=== PATIENT | male | born 1945 | race Caucasian/White ===

== ENCOUNTER 2020-08-10 15:04 | Observation (INO) | payer MEDICARE ==
[2020-08-10] MEDS ORDERED: SODIUM CHLORIDE 0.9% 500 ML 500 ML IV ONE (15:22)
--- NOTE | 2020-08-10 15:25 | ED ---
General Adult HPI - General Chief complaint: Altered Mental Status Stated complaint: Confused/Dimentia Time Seen by Provider: 08/10/20 15:13 Source: patient Mode of arrival: ambulatory Limitations: no limitations - History of Present Illness Initial comments: 75-year-old male patient presents to the emergency department today for evaluation of increased confusion and anger outbursts. Granddaughters with the patient states that he does live at home alone though he does have a caregiver for 12 hours a day. States over the last week he has been more confused than usual. States he is also been getting angry and combative. States that he did recently complete antibiotic for urinary tract infection. Denies any recent falls or head injury. Patient states she does not know why he is here and does not really respond to questions. He denies any headache, blurred vision, double vision. Denies any abdominal pain, nausea or vomiting. Denies any diarrhea. - Related Data Home Medications Medication Instructions Recorded Confirmed Amiodarone HCl [Pacerone] 100 mg PO DAILY 08/10/20 08/10/20 Aspirin EC [Ecotrin Low Dose] 81 mg PO DAILY 08/10/20 08/10/20 Bisacodyl 5 mg PO Q48H 08/10/20 08/10/20 Cholecalciferol [Vitamin D3 (25 2,000 unit PO DAILY 08/10/20 08/10/20 Mcg = 1000 Iu)] Donepezil HCl [Aricept] 10 mg PO HS 08/10/20 08/10/20 Hydrochlorothiazide 12.5 mg PO DAILY 08/10/20 08/10/20 [hydroCHLOROthiazide] Levothyroxine Sodium [Synthroid] 100 mcg PO DAILY 08/10/20 08/10/20 Memantine [Namenda] 10 mg PO BID 08/10/20 08/10/20 [place]-3 Fatty Acids/Fish Oil [Fish 1 cap PO DAILY 08/10/20 08/10/20 Oil 1,000 mg Softgel] Oxybutynin Chloride [Oxybutynin 10 mg PO BID 08/10/20 08/10/20 Chloride ER] Pravastatin Sodium [Pravachol] 40 mg PO DAILY 08/10/20 08/10/20 Ubidecarenone [Co Q-10] 100 mg PO DAILY 08/10/20 08/10/20 Allergies Allergy/AdvReac Type Severity Reaction Status Date / Time No Known Allergies Allergy Verified 08/10/20 17:21 Review of Systems ROS Statement: Those systems with pertinent positive or pertinent negative responses have been documented in the HPI. ROS Other: All systems not noted in ROS Statement are negative. Past Medical History Past Medical History: Cancer, Heart Failure, Dementia, Hyperlipidemia, Hypertension, Renal Disease, Thyroid Disorder Additional Past Medical History / Comment(s): bladder CA History of Any Multi-Drug Resistant Organisms: None Reported Past Surgical History: Bladder Surgery, Pacemaker Additional Past Surgical History / Comment(s): nephrectomy Past Psychological History: No Psychological Hx Reported Smoking Status: Former smoker Past Alcohol Use History: None Reported Past Drug Use History: None Reported General Exam Limitations: no limitations General appearance: alert, in no apparent distress, other (This is a well- developed, well-nourished adult male patient in no acute distress. Vital signs upon presentation are temperature 97.8F, pulse 62, respirations 18, blood pressure 134/88, pulse ox 96% on room air.) Eye exam: Present: normal appearance, PERRL, EOMI. Absent: scleral icterus, conjunctival injection, periorbital swelling ENT exam: Present: normal exam, normal oropharynx, mucous membranes moist Respiratory exam: Present: normal lung sounds bilaterally. Absent: respiratory distress, wheezes, rales, rhonchi, stridor Cardiovascular Exam: Present: regular rate, normal rhythm, normal heart sounds. Absent: systolic murmur, diastolic murmur, rubs, gallop, clicks GI/Abdominal exam: Present: soft, normal bowel sounds. Absent: distended, tenderness, guarding, rebound, rigid Neurological exam: Present: alert, oriented X3, CN II-XII intact Psychiatric exam: Present: normal affect, normal mood Skin exam: Present: warm, dry, intact, normal color. Absent: rash Course Vital Signs 08/10/20 08/10/20 15:08 18:16 Temperature 97.8 F 97.8 F Pulse Rate 62 74 Respiratory 18 18 Rate Blood Pressure 134/88 134/79 O2 Sat by Pulse 96 98 Oximetry EKG Findings - EKG Comments: EKG Findings:: EKG obtained at 1538 shows electronic atrial pacemaker with a michael tricular rate of 64, NM interval 100, QRS duration 86, QT 434, QTC 447. Medical Decision Making - Medical Decision Making 75-year-old male patient is brought to the emergency department by granddaughter for increased confusion and agitation. States that patient has been getting violent at home especially at nighttime. States this is been increasing over the last week. Physical examination is unremarkable. He is neurologically intact alert and oriented 2. Labs reviewed and are unremarkable. CT brain is negative. He does not currently have a UTI. Granddaughter and patient were discussing possible placement in a retirement facility. We'll admit to the hospital for further evaluation, Dr. Buckley would like neurology consulted. - Lab Data Result diagrams: 08/10/20 16:07 08/10/20 16:07 Lab Results 08/10/20 08/10/20 08/10/20 Range/Units 16:07 16:07 16:07 WBC 6.3 (3.8-10.6) k/uL RBC 4.77 (4.30-5.90) m/uL Hgb 14.7 (13.0-17.5) gm/dL Hct 43.7 (39.0-53.0) % MCV 91.6 (80.0-100.0) fL MCH 30.8 (25.0-35.0) pg MCHC 33.6 (31.0-37.0) g/dL RDW 13.5 (11.5-15.5) % Plt Count 167 (150-450) k/uL MPV 7.0 Neutrophils % 73 % Lymphocytes % 15 % Monocytes % 6 % Eosinophils % 3 % Basophils % 2 % Neutrophils # 4.6 (1.3-7.7) k/uL Lymphocytes # 0.9 L (1.0-4.8) k/uL Monocytes # 0.4 (0-1.0) k/uL Eosinophils # 0.2 (0-0.7) k/uL Basophils # 0.1 (0-0.2) k/uL PT 10.1 (9.0-12.0) sec INR 1.0 (<1.2) APTT 22.9 (22.0-30.0) sec Sodium 142 (137-145) mmol/L Potassium 3.7 (3.5-5.1) mmol/L Chloride 108 H (98-107) mmol/L Carbon Dioxide 31 H (22-30) mmol/L Anion Gap 3 mmol/L BUN 21 H (9-20) mg/dL Creatinine 1.12 (0.66-1.25) mg/dL Est GFR (CKD-EPI)AfAm 74 (>60 ml/min/1.73 sqM) Est GFR (CKD-EPI)NonAf 64 (>60 ml/min/1.73 sqM) Glucose 118 H (74-99) mg/dL Calcium 9.2 (8.4-10.2) mg/dL Total Bilirubin 0.7 (0.2-1.3) mg/dL AST 40 (17-59) U/L ALT 35 (4-49) U/L Alkaline Phosphatase 98 (38-126) U/L Troponin I (0.000-0.034) ng/mL Total Protein 6.4 (6.3-8.2) g/dL Albumin 3.7 (3.5-5.0) g/dL Urine Color Urine Appearance (Clear) Urine pH (5.0-8.0) Ur Specific [place] (1.001-1.035) Urine Protein (Negative) Urine Glucose (UA) (Negative) Urine Ketones (Negative) Urine Blood (Negative) Urine Nitrite (Negative) Urine Bilirubin (Negative) Urine Urobilinogen (<2.0) mg/dL Ur Leukocyte Esterase (Negative) 08/10/20 08/10/20 Range/Units 16:07 16:55 WBC (3.8-10.6) k/uL RBC (4.30-5.90) m/uL Hgb (13.0-17.5) gm/dL Hct (39.0-53.0) % MCV (80.0-100.0) fL MCH (25.0-35.0) pg MCHC (31.0-37.0) g/dL RDW (11.5-15.5) % Plt Count (150-450) k/uL MPV Neutrophils % % Lymphocytes % % Monocytes % % Eosinophils % % Basophils % % Neutrophils # (1.3-7.7) k/uL Lymphocytes # (1.0-4.8) k/uL Monocytes # (0-1.0) k/uL Eosinophils # (0-0.7) k/uL Basophils # (0-0.2) k/uL PT (9.0-12.0) sec INR (<1.2) APTT (22.0-30.0) sec Sodium (137-145) mmol/L Potassium (3.5-5.1) mmol/L Chloride (98-107) mmol/L Carbon Dioxide (22-30) mmol/L Anion Gap mmol/L BUN (9-20) mg/dL Creatinine (0.66-1.25) mg/dL Est GFR (CKD-EPI)AfAm (>60 ml/min/1.73 sqM) Est GFR (CKD-EPI)NonAf (>60 ml/min/1.73 sqM) Glucose (74-99) mg/dL Calcium (8.4-10.2) mg/dL Total Bilirubin (0.2-1.3) mg/dL AST (17-59) U/L ALT (4-49) U/L Alkaline Phosphatase (38-126) U/L Troponin I <0.012 (0.000-0.034) ng/mL Total Protein (6.3-8.2) g/dL Albumin (3.5-5.0) g/dL Urine Color Yellow Urine Appearance Clear (Clear) Urine pH 6.0 (5.0-8.0) Ur Specific [place] 1.022 (1.001-1.035) Urine Protein Trace H (Negative) Urine Glucose (UA) Negative (Negative) Urine Ketones Negative (Negative) Urine Blood Negative (Negative) Urine Nitrite Negative (Negative) Urine Bilirubin Negative (Negative) Urine Urobilinogen <2.0 (<2.0) mg/dL Ur Leukocyte Esterase Negative (Negative) - Radiology Data Radiology results: report reviewed, image reviewed Two-view x-ray of the chest is obtained. Report was reviewed in its entirety. Impression by Dr. Soriano shows no active cardiopulmonary disease. Normal heart. CT brain without contrast was obtained. Report was reviewed in its entirety. Impression by Dr. Soriano shows cerebral atrophy. No acute intracranial abnormality. Disposition Clinical Impression: Altered mental status Disposition: ADMITTED IP TO THIS [facility] Condition: Serious Decision to Admit Reason: Admit from EC Decision Date: 08/10/20 Decision Time: 18:03
[2020-08-10 16:17] LABS: Basophils # (A) 0.1 k/uL (0-0.2); Basophils % (A) 2 %; Eosinophils # (A) 0.2 k/uL (0-0.7); Eosinophils % (A) 3 %; HCT 43.7 % (39.0-53.0); HGB 14.7 gm/dL (13.0-17.5); Lymphocytes # (A) 0.9 k/uL (1.0-4.8); Lymphocytes % (A) 15 %; MCH 30.8 pg (25.0-35.0); MCHC 33.6 g/dL (31.0-37.0); MCV 91.6 fL (80.0-100.0); Monocytes # (A) 0.4 k/uL (0-1.0); Monocytes % (A) 6 %; Neutrophils # (A) 4.6 k/uL (1.3-7.7); Neutrophils % (A) 73 %; Platelet Count 167 k/uL (150-450); RBC 4.77 m/uL (4.30-5.90); RDW 13.5 % (11.5-15.5); WBC 6.3 k/uL (3.8-10.6)
[2020-08-10 16:26] LABS: Albumin 3.7 g/dL (3.5-5.0); Calcium 9.2 mg/dL (8.4-10.2); Potassium 3.7 mmol/L (3.5-5.1); Total Bilirubin 0.7 mg/dL (0.2-1.3); Total Protein 6.4 g/dL (6.3-8.2)
[2020-08-10 16:32] LABS: Partial Thromboplastin Time 22.9 sec (22.0-30.0); Prothrombin Time 10.1 sec (9.0-12.0)
--- NOTE | 2020-08-10 16:33 | CT ---
EXAMINATION TYPE: CT brain wo con DATE OF EXAM: 08/10/2020 COMPARISON: None HISTORY: ams CT DLP: 1131.4 mGycm Automated exposure control for dose reduction was used. Images obtained of the brain without contrast. There is cerebral cortical atrophy. There is no mass effect nor midline shift. There is no sign of in tracranial hemorrhage. The calvarium is intact. IMPRESSION: Cerebral atrophy. No acute intracranial abnormality.
--- NOTE | 2020-08-10 16:50 | XR ---
EXAMINATION TYPE: XR chest 2V DATE OF EXAM: 08/10/2020 COMPARISON: NONE HISTORY: Confusion TECHNIQUE: 3 views FINDINGS: There is no heart failure nor confluent pneumonic infiltrate. Thoracic aorta is atheromatou s. There is left axillary pacemaker. Costophrenic angles are clear. There is no pleural effusion. Bon y thorax is intact. IMPRESSION: No active cardiopulmonary disease. Normal heart.
[2020-08-10 17:05] LABS: Appearance,Urine Clear (Clear); Bilirubin,Urine Negative (Negative); Blood,Urine Negative (Negative); Color,Urine Yellow; Glucose,Urine (UA) Negative (Negative); Ketones,Urine Negative (Negative); Leukocyte Esterase,Urine Negative (Negative); Nitrite,Urine Negative (Negative); Protein,Urine Trace (Negative); Specific Gravity,Urine 1.022 (1.001-1.035); Urobilinogen,Urine <2.0 mg/dL (<2.0)
[2020-08-10] MEDS ORDERED: LORazepam 2 MG/ML INJ IV PRN (18:02)
[2020-08-10] MEDS ORDERED: NALOXONE 0.4 MG/ML 1 ML VIAL IV PRN (18:02)
--- NOTE | 2020-08-10 23:16 | P.HPIM ---
History of Present Illness H&P Date: 08/10/20 Chief Complaint: Progressive and advanced dementia This is a 75-year-old male who was seen evaluated examined on fifth floor patient has been admitted from emergency department with severe dementia and Alzheimer's disease family is having a hard time in taking care of him looking for placement into ECF, patient intermittently having confusion anger outbursts and irritability, patient has been getting more progressively Confused, patient recently had a UTI status post therapy, denies any falls, neurology has been consulted for dementia evaluation, social work has been consulted likely to be placed in ECF Review of Systems ROS unobtainable: due to mental status Past Medical History Past Medical History: Cancer, Heart Failure, Dementia, Hyperlipidemia, Hypertension, Renal Disease, Thyroid Disorder Additional Past Medical History / Comment(s): bladder CA History of Any Multi-Drug Resistant Organisms: None Reported Past Surgical History: Bladder Surgery, Pacemaker Additional Past Surgical History / Comment(s): nephrectomy Type of Cardiac Device: Permanent Pacemaker Device Placement Date:: ? Past Psychological History: No Psychological Hx Reported Smoking Status: Former smoker Past Alcohol Use History: None Reported Additional Past Alcohol Use History / Comment(s): Patients niece stated that he quit smoking and drinking 20 years. Past Drug Use History: None Reported Medications and Allergies Home Medications Medication Instructions Recorded Confirmed Type Amiodarone HCl [Pacerone] 100 mg PO DAILY 08/10/20 08/10/20 History Aspirin EC [Ecotrin Low Dose] 81 mg PO DAILY 08/10/20 08/10/20 History Bisacodyl 5 mg PO Q48H 08/10/20 08/10/20 History Cholecalciferol [Vitamin D3 (25 2,000 unit PO DAILY 08/10/20 08/10/20 History Mcg = 1000 Iu)] Donepezil HCl [Aricept] 10 mg PO HS 08/10/20 08/10/20 History Hydrochlorothiazide 12.5 mg PO DAILY 08/10/20 08/10/20 History [hydroCHLOROthiazide] Levothyroxine Sodium [Synthroid] 100 mcg PO DAILY 08/10/20 08/10/20 History Memantine [Namenda] 10 mg PO BID 08/10/20 08/10/20 History [place]-3 Fatty Acids/Fish Oil [Fish 1 cap PO DAILY 08/10/20 08/10/20 History Oil 1,000 mg Softgel] Oxybutynin Chloride [Oxybutynin 10 mg PO BID 08/10/20 08/10/20 History Chloride ER] Pravastatin Sodium [Pravachol] 40 mg PO DAILY 08/10/20 08/10/20 History Ubidecarenone [Co Q-10] 100 mg PO DAILY 08/10/20 08/10/20 History Allergies Allergy/AdvReac Type Severity Reaction Status Date / Time No Known Allergies Allergy Verified 08/10/20 17:21 Physical Exam Vitals: Vital Signs Temp Pulse Pulse Resp BP BP Pulse Ox 08/10/20 20:30 97.6 F 63 15 135/85 08/10/20 19:17 98.3 F 61 18 139/88 98 08/10/20 18:16 97.8 F 74 18 134/79 98 08/10/20 15:08 97.8 F 62 18 134/88 96 Intake and Output 08/10/20 08/10/20 08/11/20 14:59 22:59 06:59 Other: Weight 99.79 kg - Constitutional General appearance: average body habitus, disheveled - EENT Eyes: PERRLA Ears: bilateral: normal - Neck Carotids: bilateral: upstroke normal Thyroid: bilateral: normal size - Respiratory Respiratory: bilateral: CTA - Cardiovascular Rhythm: regular Heart sounds: normal: S1, S2 - Gastrointestinal General gastrointestinal: normal bowel sounds, soft - Integumentary Integumentary: normal turgor - Neurologic Neurologic: CNII-XII intact - Musculoskeletal Musculoskeletal: gait normal, strength equal bilaterally Results CBC & Chem 7: 08/10/20 16:07 08/10/20 16:07 Labs: Abnormal Lab Results - Last 24 Hours (Table) 08/10/20 08/10/20 08/10/20 Range/Units 16:07 16:07 16:55 Lymphocytes # 0.9 L (1.0-4.8) k/uL Chloride 108 H (98-107) mmol/L Carbon Dioxide 31 H (22-30) mmol/L BUN 21 H (9-20) mg/dL Glucose 118 H (74-99) mg/dL Urine Protein Trace H (Negative) Comments: Chest x-ray and computed tomography scan of the head no acute changes identified Thrombosis Risk Factor Assmnt - Choose All That Apply Each Factor Represents 1 point: Obesity (BMI >25) Each Risk Factor Represents 3 Points: Age 75 years or older Thrombosis Risk Factor Assessment Total Risk Factor Score: 4 Thrombosis Risk Factor Assessment Level: Moderate Risk Assessment and Plan Assessment: Advanced agitated dementia Hypertension hypertensive cardiovascular disease Bladder cancer History of nephrectomy and bladder cancer resection Hypothyroidism Plan: Consult neurology Resume home medications Gentle rehydration Other recommendations pending plan of care as per clinical response of the patient, once workup and evaluation complete likely to be placed in ECF Time with Patient: Greater than 30
[2020-08-10] MEDS: DONEPEZIL 10 MG TAB PO SCH (23:34)
[2020-08-10] MEDS: MEMANTINE 10 MG TAB PO SCH (23:34)
[2020-08-11] MEDS ORDERED: HALOPERIDOL LACTATE 5 MG/ML 1 ML VIAL IM PRN (00:12)
[2020-08-11] MEDS ORDERED: haloperidoL 5 MG TAB PO SCH (00:15)
--- NOTE | 2020-08-11 08:39 | P.CNNES ---
History of Present Illness Consult date: 08/11/20 Requesting physician: Melo Buckley Reason for Consult: altered mental status History of Present Illness: This is a 75-year-old gentleman with medical history of dementia, hypertension, hyperlipidemia, heart failure, hypothyroidism, bladder cancer that presented to the emergency department on 08/10/2020 for altered mental status. The history was obtained from medical records since the patient is unable to obtain the history. On presentation to the ED the granddaughters presented with the patient that state that the patient has been having increased confusion and anger outburst. The patient does live home alone but he has a caregiver for 12 hours a day. According to the documentation the patient has been more confused than usual over the past 1 week. He's been more angry and combative. He did recently complete antibiotic for urinary tract infection. It is noted the patient did not have any recent falls or head injury documented. And he reported to the emergency department that he had no headache, blurry vision or double vision as well as he denied any abdominal pain nausea or vomiting as well as diarrhea. Upon seeing the patient the patient was sleepy and not per the patient nurse patient was very agitated overnight as a result he received Ativan 1 mg at that 2201 on 08/10/2020. With the patient nurse in the morning Patient doesn't seem to be agitated. There is no seizure-like activity. There are no family members at bedside and the unsure of the patient baseline at home. It seems that the patient is on home Aricept 10 mg as well as memantine 10 mg 1 tablet twice a day for dementia. He is also on aspirin 81 mg as well as on the pravastatin 40 mg daily. Patient is also on amiodarone 100 mg daily. Workup in the hospital consisted of: Initial vital signs: Blood pressure of 134/88, heart rate of 62, respiratory of 18, temperature of 97.8 Fahrenheit oral, pulse ox of 96% room air. Since she's been in the hospital he's been afebrile. Initial white blood cell was 6.3 which is normal. And the serum glucose is [address] of the head is reported as cerebral atrophy. No acute intracranial abnormality. 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 Review of Systems Review of system is limited but per positive and negative as per HPI. Past Medical History Past Medical History: Cancer, Heart Failure, Dementia, Hyperlipidemia, Hypertension, Renal Disease, Thyroid Disorder Additional Past Medical History / Comment(s): bladder CA History of Any Multi-Drug Resistant Organisms: None Reported Past Surgical History: Bladder Surgery, Pacemaker Additional Past Surgical History / Comment(s): nephrectomy Type of Cardiac Device: Permanent Pacemaker Device Placement Date:: ? Past Psychological History: No Psychological Hx Reported Smoking Status: Former smoker Past Alcohol Use History: None Reported Additional Past Alcohol Use History / Comment(s): Patients niece stated that he quit smoking and drinking 20 years. Past Drug Use History: None Reported Medications and Allergies Home Medications Medication Instructions Recorded Confirmed Type Amiodarone HCl [Pacerone] 100 mg PO DAILY 08/10/20 08/10/20 History Aspirin EC [Ecotrin Low Dose] 81 mg PO DAILY 08/10/20 08/10/20 History Bisacodyl 5 mg PO Q48H 08/10/20 08/10/20 History Cholecalciferol [Vitamin D3 (25 2,000 unit PO DAILY 08/10/20 08/10/20 History Mcg = 1000 Iu)] Donepezil HCl [Aricept] 10 mg PO HS 08/10/20 08/10/20 History Hydrochlorothiazide 12.5 mg PO DAILY 08/10/20 08/10/20 History [hydroCHLOROthiazide] Levothyroxine Sodium [Synthroid] 100 mcg PO DAILY 08/10/20 08/10/20 History Memantine [Namenda] 10 mg PO BID 08/10/20 08/10/20 History [place]-3 Fatty Acids/Fish Oil [Fish 1 cap PO DAILY 08/10/20 08/10/20 History Oil 1,000 mg Softgel] Oxybutynin Chloride [Oxybutynin 10 mg PO BID 08/10/20 08/10/20 History Chloride ER] Pravastatin Sodium [Pravachol] 40 mg PO DAILY 08/10/20 08/10/20 History Ubidecarenone [Co Q-10] 100 mg PO DAILY 08/10/20 08/10/20 History Allergies Allergy/AdvReac Type Severity Reaction Status Date / Time No Known Allergies Allergy Verified 08/10/20 17:21 Physical Examination - Vital Signs Vital Signs: Vital Signs Temp Pulse Pulse Resp BP BP Pulse Ox 08/11/20 03:00 16 08/11/20 00:40 98.4 F 67 14 166/94 99 08/10/20 20:30 97.6 F 63 15 135/85 08/10/20 19:17 98.3 F 61 18 139/88 98 08/10/20 18:16 97.8 F 74 18 134/79 98 08/10/20 15:08 97.8 F 62 18 134/88 96 Intake and Output 08/10/20 08/11/20 08/11/20 22:59 06:59 14:59 Other: Voiding Method Incontinent Weight 99.79 kg GENERAL: The patient is lying in bed and is not in acute distress. CHEST: The heart rate is regular rate rhythm. No murmurs to auscultation. LUNG: Clear to auscultation bilaterally no wheezing noted throughout. Not labored breathing. ABDOMEN/GI: Bowel sounds present in all 4 quadrants. No tenderness to palpation throughout. NEUROLOGICAL: Higher mental function: The patient is drowsy but awakeble to voice. Oriented to self. Stated he is lying in bed but unable to tell where. Does not respond regarding year or month. Patient is following simple commands. No aphasia. Cranial nerves: The pupils are round, equal (4mm) and reactive to light. Visual luz are full to threat throughout. Extraocular movement is intact no nystagmus is noted. 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 She does not have facial weakness bilaterally. The facial strength is normal throughout. No dysarthria is noted. Unable to test the rest of cranial nerves because the patient cooperation. Motor: Gait is deferred because of patient cooperation. The strength has at least 4/5 all extremities and unable to test individual muscle because of the patient cooperation. Normal tone and bulk. Cerebellum: Unable to assess because the patient cooperation. Sensation: Unable to assess because of patient cooperation Reflexes (right/left): 2+ throughout except ankles 1+ bilaterally. Plantars are downgoing bilaterally. Results AST of 40 and ALT of 35. Coagulation study: PT of 10.1, INR 1.0, PTT of 22.9. Urinalysis is negative for urinary tract infection. - Laboratory Findings CBC and BMP: 08/10/20 16:07 08/10/20 16:07 Abnormal Lab Findings: Abnormal Labs 08/10/20 08/10/20 08/10/20 16:07 16:07 16:55 Lymphocytes # 0.9 L Chloride 108 H Carbon Dioxide 31 H BUN 21 H Glucose 118 H Urine Protein Trace H Assessment and Plan Assessment: This is a 75-year-old gentleman that presents the hospital on 08/10/2020 for the confusion and agitation and per family members he's been more confused and agita jani the for the past 1 week. Altered mental status possibly is delerirum from recent UTI (completed course). Rule out any other underlying infection.----mentation improving. History of dementia Recent history of urinary tract infection that completed antibiotic course Hypertension Hyperlipidemia Heart failure Hypothyroidism History of bladder cancer Plan: For altered mental status I ordered a TSH, vitamin B12, folate, ammonia level. Also ordered a routine EEG. I'll not start the patient on any antiepileptic drug unless there is as seizure or epileptiform discharges on the EEG. Recommend further infection workup and we'll defer the workup to the primary team. Regarding the patient enlarged ventricle that seen on the CT of the head over the lateral third and fourth ventricle that was suspicious for normal pressure hydrocephalus and I'll defer the workup as an outpatient if the family decides to work him up to an outpatient neurology clinic. Regarding the patient history of dementia the patient is on home dose Aricept 10 mg daily as well as memantine 10 mg 1 tablet twice a day and is continued during this visit. Unsure of the patient the mentation baseline and we'll attempt to contact the family later today and. Upon discharge the patient needs to follow-up with a neurologist within 1-2 weeks as an outpatient. The plan was discussed with the patient nurse Thank you for the consultation. Kannan Love M.D. Neuro-hospitalist Time with Patient: Greater than 30
[2020-08-11] MEDS ORDERED: NON FORMULARY DRUG (Omega-3 Fatty Acids/Fish Oil [Fish Oil 1,000 Mg Softgel] 1 EACH Capsul PO SCH (09:00)
[2020-08-11] MEDS ORDERED: NON FORMULARY DRUG (Ubidecarenone [Co Q-10] 100 MG Capsule) PO SCH (09:00)
[2020-08-11] MEDS: PRAVASTATIN SODIUM 40 MG TAB PO SCH (10:15)
[2020-08-11] MEDS: hydroCHLOROthiazide 12.5 MG CAP PO SCH (10:15)
[2020-08-11] MEDS: MEMANTINE 10 MG TAB PO SCH ×2 (10:15→20:42)
[2020-08-11] MEDS: ASPIRIN 81 MG PO SCH (10:15)
[2020-08-11] MEDS: CHOLECALCIFEROL 1,000 UNIT TAB PO SCH (10:15)
[2020-08-11] MEDS: bisacodyL 5 MG TABLET.DR PO SCH (10:15)
[2020-08-11] MEDS: AMIODARONE 100 MG TAB PO SCH (10:16)
[2020-08-11] MEDS: OXYBUTYNIN 10 MG TAB.ER.24 PO SCH ×2 (10:16→20:42)
--- NOTE | 2020-08-11 14:04 | P.PN ---
Subjective Progress Note Date: 08/11/20 Principal diagnosis: Advanced agitated dementia Hypertension hypertensive cardiovascular disease Bladder cancer History of nephrectomy and bladder cancer resection Hypothyroidism 08/11/2020, patient is more calm and comfortable now makes eye contact noticed is present, sitter has been discontinued, This is a 75-year-old male who was seen evaluated examined on fifth floor patient has been admitted from emergency department with severe dementia and Alzheimer's disease family is having a hard time in taking care of him looking for placement into ECF, patient intermittently having confusion anger outbursts and irritability, patient has been getting more progressively Confused, patient recently had a UTI status post therapy, denies any falls, neurology has been consulted for dementia evaluation, social work has been consulted likely to be placed in ECF Objective - Vital Signs Vital signs: Vital Signs Temp 98 F 08/11/20 08:11 Pulse 60 08/11/20 08:11 Resp 16 08/11/20 08:11 BP 133/78 08/11/20 08:11 Pulse Ox 97 08/11/20 08:11 Intake & Output 08/10/20 08/11/20 08/11/20 18:59 06:59 18:59 Weight 99.79 kg 99.79 kg Other: Voiding Method Incontinent Diaper - Exam - Constitutional General appearance: average body habitus, disheveled - EENT Eyes: PERRLA Ears: bilateral: normal - Neck Carotids: bilateral: upstroke normal Thyroid: bilateral: normal size - Respiratory Respiratory: bilateral: CTA - Cardiovascular Rhythm: regular Heart sounds: normal: S1, S2 - Gastrointestinal General gastrointestinal: normal bowel sounds, soft - Integumentary Integumentary: normal turgor - Neurologic Neurologic: CNII-XII intact - Musculoskeletal Musculoskeletal: gait normal, strength equal bilaterally - Labs CBC & Chem 7: 08/10/20 16:07 08/10/20 16:07 Labs: Abnormal Lab Results - Last 24 Hours (Table) 08/10/20 08/10/20 08/10/20 Range/Units 16:07 16:07 16:55 Lymphocytes # 0.9 L (1.0-4.8) k/uL Chloride 108 H (98-107) mmol/L Carbon Dioxide 31 H (22-30) mmol/L BUN 21 H (9-20) mg/dL Glucose 118 H (74-99) mg/dL Urine Protein Trace H (Negative) Assessment and Plan Assessment: Advanced agitated dementia Hypertension hypertensive cardiovascular disease Bladder cancer History of nephrectomy and bladder cancer resection Hypothyroidism Plan: Consult neurology recommendation reviewed and appreciated Resume home medications Gentle rehydration Other recommendations pending plan of care as per clinical response of the patient, once workup and evaluation complete likely to be placed in ECF Time with Patient: Greater than 30
--- NOTE | 2020-08-11 17:49 | EEG ---
ELECTROENCEPHALOGRAM REPORT DATE OF SERVICE: 08/11/2020 CLINICAL HISTORY: This is a 75-year-old gentleman who presented to the emergency department on 08/10/2020 for confusion and agitation. The video EEG is obtained to evaluate for seizure and epileptiform activity. RELEVANT MEDICATION: The patient is not on any antiepileptic drugs. EEG TYPE: A routine 21-channel EEG is performed with video using the 10/20 electrode placement system. DESCRIPTION: Wakefulness, drowsiness and stage II sleep are obtained. During wakefulness there is no posterior-dominant rhythm. During awake state, background consists of low voltage, nonrhythmic 5-6 hertz theta activity over bilateral hemispheres intermixed with delta activity. During drowsiness there is slowing and attenuation of the background activity. During stage II sleep there are sleep spindles and K complexes. INTERICTAL AND ICTAL: None. ACTIVATION PROCEDURE: Photic stimulation did not evoke a posterior-driving response. Hyperventilation is not performed. CLINICAL INTERPRETATION: This is an abnormal routine EEG. The background slowing is suggestive of moderate encephalopathy of unspecified etiology. There are no focal slowing, epileptiform discharges or seizures during the study. Clinical correlation is recommended. MMODL / IJN: [id number] / MTDD
[2020-08-11] MEDS: DONEPEZIL 10 MG TAB PO SCH (20:42)
[2020-08-12] MEDS: ASPIRIN 81 MG PO SCH (07:53)
[2020-08-12] MEDS: PRAVASTATIN SODIUM 40 MG TAB PO SCH (07:53)
[2020-08-12] MEDS: hydroCHLOROthiazide 12.5 MG CAP PO SCH (07:54)
[2020-08-12] MEDS: MEMANTINE 10 MG TAB PO SCH ×2 (07:54→22:14)
[2020-08-12] MEDS: CHOLECALCIFEROL 1,000 UNIT TAB PO SCH (07:54)
[2020-08-12] MEDS: AMIODARONE 100 MG TAB PO SCH (07:54)
[2020-08-12] MEDS: OXYBUTYNIN 10 MG TAB.ER.24 PO SCH ×2 (07:55→22:14)
--- NOTE | 2020-08-12 13:16 | P.PN ---
Subjective Progress Note Date: 08/12/20 Principal diagnosis: Advanced agitated dementia Hypertension hypertensive cardiovascular disease Bladder cancer History of nephrectomy and bladder cancer resection Hypothyroidism 08/12/2020, patient seen eval examined during the rounds labs reviewed medications reviewed overall patient is more calm and comfortable now, neurology has been evaluated the patient, psych consult dictation is pending as per family request, 08/11/2020, patient is more calm and comfortable now makes eye contact noticed is present, sitter has been discontinued, This is a 75-year-old male who was seen evaluated examined on fifth floor patient has been admitted from emergency department with severe dementia and Alzheimer's disease family is having a hard time in taking care of him looking for placement into ECF, patient intermittently having confusion anger outbursts and irritability, patient has been getting more progressively Confused, patient recently had a UTI status post therapy, denies any falls, neurology has been consulted for dementia evaluation, social work has been consulted likely to be placed in ECF Objective - Vital Signs Vital signs: Vital Signs Temp 97.9 F 08/12/20 07:00 Pulse 61 08/12/20 07:00 Resp 20 08/12/20 07:00 BP 115/72 08/12/20 07:00 Pulse Ox 97 08/12/20 07:00 Intake & Output 08/11/20 08/12/20 08/12/20 18:59 06:59 18:59 Intake Total 320 320 Balance 320 320 Intake: Oral 320 320 Other: Voiding Method Diaper Toilet Toilet Diaper Diaper Incontinent Incontinent # Voids 3 1 - Exam - Constitutional General appearance: average body habitus, disheveled - EENT Eyes: PERRLA Ears: bilateral: normal - Neck Carotids: bilateral: upstroke normal Thyroid: bilateral: normal size - Respiratory Respiratory: bilateral: CTA - Cardiovascular Rhythm: regular Heart sounds: normal: S1, S2 - Gastrointestinal General gastrointestinal: normal bowel sounds, soft - Integumentary Integumentary: normal turgor - Neurologic Neurologic: CNII-XII intact - Musculoskeletal Musculoskeletal: gait normal, strength equal bilaterally - Labs CBC & Chem 7: 08/10/20 16:07 08/10/20 16:07 Assessment and Plan Assessment: Advanced agitated dementia Hypertension hypertensive cardiovascular disease Bladder cancer History of nephrectomy and bladder cancer resection Hypothyroidism Plan: Pending psychiatric consultation Consult neurology recommendation reviewed and appreciated Continue home medications Gentle oral rehydration Other recommendations pending plan of care as per clinical response of the patient, once workup and evaluation complete likely to be placed in ECF Time with Patient: Greater than 30
[2020-08-12] MEDS ORDERED: HALOPERIDOL LACTATE 5 MG/ML 1 ML VIAL IM PRN (13:59)
[2020-08-12] MEDS ORDERED: QUEtiapine 25 MG TAB PO PRN (14:00)
--- NOTE | 2020-08-12 14:18 | P.CN ---
Psychiatric Consult - . Consult date: 08/12/20 Consult:: 08/12/20 14:03 IDENTIFYING DATA: This patient is a 75 yo male who has history of dementia and is currently living alone in a trailer and has 24-hour caregivers and is . REASON FOR REFERRAL: Psychiatry was consulted for "combative towards caregiver". HISTORY OF PRESENT ILLNESS: The patient presented to the hospital for the chief complaint of increase in his confusion and anger outbursts. This has been reported to be especially prevalent at nighttime. According to granddaughter and ER note this is been going on for over a week now and patient has been treated previously for a UTI with antibiotics. Patient had another UA completed upon admission which was negative for infection. Patient had a CT of the brain which did not show any acute changes. Nursing care patient states that he has been doing better now and was earlier agitated however not very aggressive. She states that he slept well last night. Nurse also claims that he has been ambulating well. Patient was seen at the bedside and was calm and attempting to be appropriate with principal technical writer. He was a poor historian and perseverated on the fact that he had caregivers at home which came infrequently to take care of him. He had poor insight and knowledge of why he was in the hospital. He did know his complete name however did not know what city he was in and had to lock on the board to know the date. He only knows who the current president is but does not know the previous president. He had difficulties with his memory during conversation. He denied any problems with the caregivers at home and denied any anger issues or confusion. He had fair attention span. He claims that his mood was "okay" and denied any depression or anxiety. He did not endorse any paranoia or delusions. At this time patient denies any suicidal or homical ideations, intent or plan. Patient denies any auditory, visual hallucinations. Patients admits to using no recreational drugs or cigarettes. Claire Camacho was called by principal technical writer at [phone] who states that he was more confused recently and has been aggressive towards others. She states that he ran outside naked to neighbors and was confused and she took him to [facility] who discharged him. Granddaughter had several questions about his care and was asking about long-term placement options. PAST PSYCHIATRIC HISTORY: Patient has a a history of dementia. Patient denies being on any psychiatric medications. Patient denies any previous psychiatric hospitalizations. Patient denies any psychiatric outpatient follow-up. Patient denies any history of suicide attempts in the past. PAST MEDICAL HISTORY: Dementia, latter cancer, heart failure, hypertension, thyroid disorder. ALLERGIES: as per EMR. CHEMICAL DEPENDENCY HISTORY: as per HPI. FAMILY PSYCHIATRIC/SUBSTANCE USE HISTORY: denies SOCIAL HISTORY: Patient was born and raised [place] [facility] [place] [facility] He states that he served in the [employer] however does not know the dates. 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 He states that he is currently twice. He denies ever going to fpc or half-way in the past. He currently lives in a trailer alone and has 24-hour caregivers. MENTAL STATUS EXAM: General Appearance: Patient appears to be stated age is alert, pleasant, has fair attention span. Attempts to be cooperative. Patient appears to have fair hygiene and grooming wearing hospital gown with fair eye contact. Behavior: Patient is calmly lying in bed without any agitated behavior. Speech: Patient's speech is fluent and nonpressured. Mood/Affect: Patient reports their mood is "ok", affect is congruent and constricted Suicidality/Homicidality: Patient denies having any suicidal or homicidal ideation intent or plan. Perceptions: Patient denies any visual hallucinations and denies any auditory hallucinations Though content/process: Felicity, poor historian. Rambles at times. Logical. Memory and concentration: AOX1-2, does not know his current location and needed to check the board for the current date, fair attention span, poor memory recall 0 out of 3 after 5 minutes. Cannot spell "WORLD" backwards Judgment and insight: Limited IMPRESSIONS: Delirium, likely secondary to infection uti which has been resolving History of dementia PLAN: -At this time patient DOES NOT meet criteria for inpatient psychiatric admission. -Delirium precautions recommended with patient including - avoiding use of narcotics and [employer]IAN sedatives, limit anticholinergic medications when possible, frequent re-orientation, minimize use of restraints, open window shades during the day and close them at night -Would recommend the following medication changes/additions: Added melatonin 2 mg daily at bedtime for insomnia. Added Seroquel 25 mg daily at bedtime when necessary for agitation/insomnia/aggression. Haldol 1 mg every 8 hours when necessary for severe agitation if patient is not able to tolerate by mouth. -Communicated plan to patient's nurse and adoption social worker. -aniline press worker to reach out to patient's granddaughter to give resources and assist with long-term placement options. -Will continue to follow along -Please contact with any questions.
--- NOTE | 2020-08-12 16:59 | P.PN ---
Subjective Progress Note Date: 08/12/20 The patient was doing much better today compared to yesterday. He feels much better today compared to yesterday. He denies of any focal weakness, numbness, visual disturbance, difficulty getting his words out. Objective - Vital Signs Vital signs: Vital Signs Temp 97.6 F 08/12/20 14:00 Pulse 92 08/12/20 14:00 Resp 20 08/12/20 14:00 BP 119/74 08/12/20 14:00 Pulse Ox 94 L 08/12/20 14:00 Intake & Output 08/11/20 08/12/20 08/12/20 18:59 06:59 18:59 Intake Total 320 320 Balance 320 320 Intake: Oral 320 320 Other: Voiding Method Diaper Toilet Toilet Diaper Diaper Incontinent Incontinent # Voids 3 1 - Exam GENERAL: The patient is lying in bed and is not in acute distress. NEUROLOGICAL: Higher mental function: The patient is awake, altert, oriented to self, place and time. Patient is following simple commands. No aphasia or neglect. Cranial nerves: The pupils are round, equal (4mm) and reactive to light. Visual luz are full to threat throughout. Extraocular movement is intact no nystagmus is noted. Facial sensation is normal to touch throughout. No facial weakness noted bilaterally. No dysarthria is noted. Motor: Gait is deferred. The strength is 5/5 throughout. Normal tone and bulk. Sensation: Normal to touch throughout. Reflexes (right/left): 2+ throughout except ankles 1+ bilaterally. Plantars are downgoing bilaterally. - Labs CBC & Chem 7: 08/10/20 16:07 08/10/20 16:07 Assessment and Plan Assessment: This is a 75-year-old gentleman that presents the hospital on 08/10/2020 for the confusion and agitation and per family members he's been more confused and agitated the for the past 1 week. Altered mental status possibly is delerirum from recent UTI (completed course)--improved History of dementia Recent history of urinary tract infection that completed antibiotic course Hypertension Hyperlipidemia Heart failure Hypothyroidism History of bladder cancer Plan: Routine EEG: The background slowing is suggestive of moderate encephalopathy. There are no focal slowing, epileptiform discharges or seizure during the EEG. TSH: 2.46 (normal). Vitamin B12: 494 (normal). Folate: 702 (normal). Ammonia level: 22 (normal). Recommend further infection workup and we'll defer the workup to the primary team. Regarding the patient enlarged ventricle that seen on the CT of the head over the lateral third and fourth ventricle that was suspicious for normal pressure hydrocephalus and I'll defer the workup as an outpatient if the family decides to work him up to an outpatient neurology clinic. Regarding the patient history of dementia the patient is on home dose Aricept 10 mg daily as well as memantine 10 mg 1 tablet twice a day and is continued during this visit. Upon discharge the patient needs to follow-up with a neurologist within 1-2 weeks as an outpatient. The plan was discussed with the patient and his nurse. Kannan Love M.D. Neuro-hospitalist Time with Patient: Less than 30
[2020-08-12] MEDS ORDERED: MELATONIN 1 MG TAB PO SCH (21:00)
[2020-08-12] MEDS: DONEPEZIL 10 MG TAB PO SCH (22:14)
[2020-08-13] MEDS: ASPIRIN 81 MG PO SCH (10:07)
[2020-08-13] MEDS: AMIODARONE 100 MG TAB PO SCH (10:07)
[2020-08-13] MEDS: CHOLECALCIFEROL 1,000 UNIT TAB PO SCH (10:07)
[2020-08-13] MEDS: bisacodyL 5 MG TABLET.DR PO SCH (10:07)
[2020-08-13] MEDS: MEMANTINE 10 MG TAB PO SCH (10:07)
[2020-08-13] MEDS: hydroCHLOROthiazide 12.5 MG CAP PO SCH (10:07)
[2020-08-13] MEDS: PRAVASTATIN SODIUM 40 MG TAB PO SCH (10:07)
[2020-08-13] MEDS: OXYBUTYNIN 10 MG TAB.ER.24 PO SCH (10:07)
--- NOTE | 2020-08-13 11:30 | P.PN ---
Subjective Progress Note Date: 08/13/20 She was seen at bedside and he continues to be doing well. He denies of any weakness, numbness or visual disturbance. Per the patient's nurse he feels like he is doing also well and that he doesn't see that he is having any confusion. Objective - Vital Signs Vital signs: Vital Signs Temp 97.6 F 08/13/20 07:48 Pulse 69 08/13/20 07:55 Resp 16 08/13/20 07:55 BP 114/81 08/13/20 07:48 Pulse Ox 96 08/13/20 07:48 Intake & Output 08/12/20 08/13/20 08/13/20 18:59 06:59 18:59 Intake Total 320 Output Total 2 1 Balance 320 -2 -1 Intake: Oral 320 Output: Stool 2 1 Other: Voiding Method Toilet Toilet Toilet Diaper Incontinent # Voids 3 1 - Exam GENERAL: The patient is lying in bed and is not in acute distress. NEUROLOGICAL: Higher mental function: The patient is awake, altert, oriented to self, place and time. Patient is following simple commands. No aphasia or neglect. Cranial nerves: The pupils are round, equal (4mm) and reactive to light. Visual luz are full to threat throughout. Extraocular movement is intact no nystagmus is noted. Facial sensation is normal to touch throughout. No facial weakness noted bilaterally. No dysarthria is noted. Motor: Gait is deferred. The strength is 5/5 throughout. Normal tone and bulk. Sensation: Normal to touch throughout. Reflexes (right/left): 2+ throughout except ankles 1+ bilaterally. Plantars are downgoing bilaterally. - Labs CBC & Chem 7: 08/10/20 16:07 08/10/20 16:07 Assessment and Plan Assessment: This is a 75-year-old gentleman that presents the hospital on 08/10/2020 for the confusion and agitation and per family members he's been more confused and agitated the for the past 1 week. Altered mental status possibly delerirum from recent UTI (completed course)--resolved History of dementia Recent history of urinary tract infection that completed antibiotic course Hypertension Hyperlipidemia Heart failure Hypothyroidism History of bladder cancer Plan: Routine EEG: The background slowing is suggestive of moderate encephalopathy. There are no focal slowing, epileptiform discharges or seizure during the EEG. TSH: 2.46 (normal). Vitamin B12: 494 (normal). Folate: 702 (normal). Ammonia level: 22 (normal). Recommend further infection workup and we'll defer the workup to the primary team. Regarding the patient enlarged ventricle that seen on the CT of the head over the lateral third and fourth ventricle that was suspicious for normal pressure hydrocephalus and I'll defer the workup as an outpatient if the family decides to work him up to an outpatient neurology clinic. Regarding the patient history of dementia the patient is on home dose Aricept 10 mg daily as well as memantine 10 mg 1 tablet twice a day and is continued during this visit. Upon discharge the patient needs to follow-up with a neurologist within 1-2 weeks as an outpatient. The plan was discussed with the patient and his nurse. Kannan Love M.D. Neuro-hospitalist Time with Patient: Less than 30
--- NOTE | 2020-08-13 13:26 | P.DS ---
Providers Date of admission: 08/10/20 17:55 Expected date of discharge: 08/13/20 Attending physician: Melo Buckley Consults: 08/10/20 23:26 Consult Physician Stat Consulting Provider: Kannan Love Consult Reason/Comments: altered mental status Do you want consulting provider notified?: Yes 08/12/20 10:34 Consult Physician Routine Consulting Provider: Sagar Deleon Consult Reason/Comments: combative towards home caregiver Do you want consulting provider notified?: Yes Primary care physician: Bi Quiroga Hospital Course: 08/13/2020, patient seen eval examined overall remains stable hemodynamics stable with normal labs, patient has been eval by psychiatry and neurology, not considered to be a candidate for placement in chronic dementia facility, patient is stable from medical medical standpoint for discharge follow-up with primary care provider 08/12/2020, patient seen eval examined during the rounds labs reviewed medications reviewed overall patient is more calm and comfortable now, neurology has been evaluated the patient, psych consult dictation is pending as per family request, 08/11/2020, patient is more calm and comfortable now makes eye contact noticed is present, sitter has been discontinued, This is a 75-year-old male who was seen evaluated examined on fifth floor patient has been admitted from emergency department with severe dementia and Alzheimer's disease family is having a hard time in taking care of him looking for placement into ECF, patient intermittently having confusion anger outbursts and irritability, patient has been getting more progressively Confused, patient recently had a UTI status post therapy, denies any falls, neurology has been consulted for dementia evaluation, social work has been consulted likely to be placed in ECF Objective - Vital Signs Vital signs: Vital Signs Temp 97.9 F 08/12/20 07:00 Pulse 61 08/12/20 07:00 Resp 20 08/12/20 07:00 BP 115/72 08/12/20 07:00 Pulse Ox 97 08/12/20 07:00 Intake & Output 08/11/20 08/12/20 08/12/20 18:59 06:59 18:59 Intake Total 320 320 Balance 320 320 Intake: Oral 320 320 Other: Voiding Method Diaper Toilet Toilet Diaper Diaper Incontinent Incontinent # Voids 3 1 - Exam - Constitutional General appearance: average body habitus, disheveled - EENT Eyes: PERRLA Ears: bilateral: normal - Neck Carotids: bilateral: upstroke normal Thyroid: bilateral: normal size - Respiratory Respiratory: bilateral: CTA - Cardiovascular Rhythm: regular Heart sounds: normal: S1, S2 - Gastrointestinal General gastrointestinal: normal bowel sounds, soft - Integumentary Integumentary: normal turgor - Neurologic Neurologic: CNII-XII intact - Musculoskeletal Musculoskeletal: gait normal, strength equal bilaterally - Labs CBC & Chem 7: 08/10/20 16:07 08/10/20 16:07 Assessment and Plan Assessment: Advanced agitated dementia Hypertension hypertensive cardiovascular disease Bladder cancer History of nephrectomy and bladder cancer resection Hypothyroidism Assessment: Advanced agitated dementia him a improved significantly Hypertension hypertensive cardiovascular disease Bladder cancer History of nephrectomy and bladder cancer resection Hypothyroidism Patient Condition at Discharge: Fair Plan - Discharge Summary New Discharge Prescriptions: New Aspirin 81 mg PO DAILY chew Continue Pravastatin Sodium [Pravachol] 40 mg PO DAILY Oxybutynin Chloride [Oxybutynin Chloride ER] 10 mg PO BID Memantine [Namenda] 10 mg PO BID Levothyroxine Sodium [Synthroid] 100 mcg PO DAILY [place]-3 Fatty Acids/Fish Oil [Fish Oil 1,000 mg Softgel] 1 cap PO DAILY Hydrochlorothiazide [hydroCHLOROthiazide] 12.5 mg PO DAILY Donepezil HCl [Aricept] 10 mg PO HS Ubidecarenone [Co Q-10] 100 mg PO DAILY Cholecalciferol [Vitamin D3 (25 Mcg = 1000 Iu)] 2,000 unit PO DAILY Bisacodyl 5 mg PO Q48H Amiodarone HCl [Pacerone] 100 mg PO DAILY Aspirin EC [Ecotrin Low Dose] 81 mg PO DAILY Discharge Medication List Amiodarone HCl [Pacerone] 100 mg PO DAILY 08/10/20 [History] Aspirin EC [Ecotrin Low Dose] 81 mg PO DAILY 08/10/20 [History] Bisacodyl 5 mg PO Q48H 08/10/20 [History] Cholecalciferol [Vitamin D3 (25 Mcg = 1000 Iu)] 2,000 unit PO DAILY 08/10/20 [History] Donepezil HCl [Aricept] 10 mg PO HS 08/10/20 [History] Hydrochlorothiazide [hydroCHLOROthiazide] 12.5 mg PO DAILY 08/10/20 [History] Levothyroxine Sodium [Synthroid] 100 mcg PO DAILY 08/10/20 [History] Memantine [Namenda] 10 mg PO BID 08/10/20 [History] [place]-3 Fatty Acids/Fish Oil [Fish Oil 1,000 mg Softgel] 1 cap PO DAILY 08/10/20 [History] Oxybutynin Chloride [Oxybutynin Chloride ER] 10 mg PO BID 08/10/20 [History] Pravastatin Sodium [Pravachol] 40 mg PO DAILY 08/10/20 [History] Ubidecarenone [Co Q-10] 100 mg PO DAILY 08/10/20 [History] Aspirin 81 mg PO DAILY chew 08/13/20 [Rx] Follow up Appointment(s)/Referral(s): Tc Schultz MD [REFERRING] - 1-2 days
--- NOTE | 2020-08-13 13:29 | P.PN ---
Progress Note - Text Progress Note Date: 08/13/20 Interval History: Patient was seen today for psychiatric follow-up regarding patient's delirium and dementia. Nurse taking care of patient states that patient has been doing fairly well and has had no behavioral complaints. Nurse also claims the patient has been eating well and slept last night. Patient was seen at the bedside and appeared to be in a brighter mood today and was more cooperative with resume writer. He claims that he remembered resume writer from yesterday however forgot his name. Patient was alert and oriented 2 that he was in the hospital and today's date along with his name however does not know specific location. He did not offer any new complaints and states that he is looking forward to go home. He spoke again about his caregivers and about the holidays. He denies any depression or anxiety today. He is not endorsing any delusions. At this time patient denies any suicidal or homical ideations, intent or plan. Patient denies any auditory, visual hallucinations. Patient denies any side effects from the medications and has been compliant with meds. Mental Status Exam: General Appearance: Patient appears to be stated age is alert, pleasant, has fair attention span. Attempts to be cooperative. Patient appears to have fair hygiene and grooming wearing hospital gown with fair eye contact. Behavior: Patient is calmly lying in bed without any agitated behavior. Speech: Patient's speech is fluent and nonpressured. Mood/Affect: Patient reports their mood is "good", affect is congruent and euthymic Suicidality/Homicidality: Patient denies having any suicidal or homicidal ideation intent or plan. Perceptions: Patient denies any visual hallucinations and denies any auditory hallucinations Though content/process: Rambles at times, improving mildly. Logical. Memory and concentration: AOX2, does not know his current location, fair attention span, poor memory recall. Judgment and insight: Limited, improving mildly Assessment Delirium, likely secondary to infection uti which has been resolving History of dementia Plan: -At this time patient DOES NOT meet criteria for inpatient psychiatric admission. -Delirium precautions recommended with patient including - avoiding use of narcotics and [employer] sedatives, limit anticholinergic medications when possible, frequent re-orientation, minimize use of restraints, open window shades during the day and close them at night -Would recommend the following medication changes/additions: Increased melatonin 3 mg daily at bedtime for insomnia. Continue with Seroquel 25 mg daily at bedtime when necessary for agitation/insomnia/aggression as a PRN only. -Communicated plan to patient's nurse and social group worker. -take off worker to reach out to patient's granddaughter to give resources and assist with long-term placement options. -At this time psychiatry will sign off and patient is cleared from a psychiatric standpoint for discharge when medically appropriate. -Please contact with any questions.
[2020-08-13 14:17] VITALS: BP 120/72; PULSE 64; RESP 18; TEMP 98.1
[2020-08-13] MEDS ORDERED: MELATONIN 3 MG TABLET PO SCH (21:00)
== END 2020-08-13 16:29 | disposition home or self-care (01) ==
LOC: EC 15:04 → INTOOBSV 17:55 → 5NMEDONC 17:55 → 4SSUR 08-11 03:14 → UNDODISIN 08-13 16:29
PROVIDERS: ADMIT Internal Medicine Sleep Medicine; ATTEND Internal Medicine Sleep Medicine
DX: G30.9 Alzheimer's disease, unspecified (principal); F02.81 Dementia in other diseases classified elsewhere, unspecified severity, with behavioral disturbance; R94.01 Abnormal electroencephalogram [EEG]; I11.0 Hypertensive heart disease with heart failure; I50.9 Heart failure, unspecified; E03.9 Hypothyroidism, unspecified; E78.5 Hyperlipidemia, unspecified; G31.9 Degenerative disease of nervous system, unspecified; E66.9 Obesity, unspecified; Z87.440 Personal history of urinary (tract) infections; Z79.899 Other long term (current) drug therapy; Z79.82 Long term (current) use of aspirin; Z79.890 Hormone replacement therapy; Z85.51 Personal history of malignant neoplasm of bladder; Z87.448 Personal history of other diseases of urinary system; Z98.890 Other specified postprocedural states; Z95.0 Presence of cardiac pacemaker; Z90.5 Acquired absence of kidney; Z87.891 Personal history of nicotine dependence; Z68.34 Body mass index [BMI] 34.0-34.9, adult
CPT/HCPCS: 96374; 96361; 99285; 36415; 95819; 93005; 97161; 97166; 82747; 80053; 84443; 82607; 82140; 84484; 85025; 85610; 85730; 81003; 71046; 70450; G0378 ×5; J2060; 96360